=== PATIENT | male | born 1940 | race Caucasian/White ===

== ENCOUNTER 2016-09-28 10:27 | Emergency (ER) | payer BC ==
[~2016-09-28] VITALS: Ht 167.6 cm; Wt 96.0 kg
[2016-09-28 10:34] VITALS: TEMP 36.5; Ht 167.6 cm; Wt 96.0 kg
[2016-09-28] MEDS ORDERED: DILT-115 PO (10:57)
[2016-09-28] MEDS ORDERED: PANT40TA PO (10:57)
[2016-09-28] MEDS ORDERED: GLIM4TAB2 PO (10:57)
[2016-09-28] MEDS ORDERED: LOSA1TAB38 PO (10:57)
[2016-09-28] MEDS ORDERED: DOXA4TAB2 PO (10:57)
[2016-09-28] MEDS ORDERED: METF-384 PO (10:57)
[2016-09-28] MEDS ORDERED: METO100T14 PO (10:57)
[2016-09-28] MEDS ORDERED: SIMV10TA2 PO (10:57)
[2016-09-28] MEDS ORDERED: FINA5TAB PO (10:57)
[2016-09-28] MEDS ORDERED: HYDR-4717 PO (10:57)
--- NOTE | 2016-09-28 11:13 | EMERGENCY ROOM VISIT NOTE ---
History Report prepared by Marika: Sanna Renae Under the Supervision of: Dr. Stephane Corrales M.D. First contact with patient: 10:51 Chief Complaint: NOSE BLEED (MINOR) Stated Complaint: BLOODY NOSE - PCP SENT HERE History of Present Illness The patient is a 76 year old male who presents to the Emergency Room with complaints of a intermittent nose bleeds beginning 3 weeks ago. The patient states that his nose is bleeding mostly out of the left side today. He notes that he had his nose cauterized 2 times and tried a Rhino Rocket without relief of his symptoms. He reports that he is on Warfarin for TIA and baby aspirin but has not taken Warfarin since 5 days ago when his doctor told him to stop taking it and he stopped taking Aspirin 3 days ago. The patient complains of congestion. He denies any abdominal pain, urinary symptoms, bowel changes. He notes that he used Afrin last night without his relief of symptoms. He notes that he has been on Warfarin for 20 years and has never had an issue until recently. The patient states that he broke his nose 55 years ago. Source of History: patient Onset: 3 weeks ago Position: nose Quality: other (bleeding) Timing: intermittent Associated Symptoms: No abdominal pain, No urinary symptoms Note: Pt complains of congestion. Denies bowel changes. Review of Systems All systems have been listed, reviewed, and are negative other than those previously mentioned. Please see Additional Medical History Sheet. Past Medical & Surgical Medical Problems: (1) Diabetes (2) HTN (hypertension) Surgical Problems: (1) Hx of cholecystectomy Family History Diabetes mellitus Gallbladder disease Heart disease Hypertension Kidney disease Kidney stones Social History Smoking Status: Never Smoker Smokeless Tobacco Use: No Alcohol Use: occasionally Marital Status: Housing Status: lives with significant other Occupation Status: retired Current/Historical Medications Scheduled Diltiazem Hcl Ext Rel (Tiazac), 240 MG PO DAILY Doxazosin Mesylate (Cardura), 4 MG PO DAILY Finasteride (Proscar), 5 MG PO DAILY Glimepiride (Glimepiride), 4 MG PO BID Hydralazine Hcl (Apresoline), 25 MG PO DAILY Losartan Potassium (Cozaar), 100 MG PO DAILY Metformin Hcl (Glucophage), 1,000 MG PO AMPM Metoprolol Tartrate (Lopressor) (Lopressor), 50 MG PO AMPM Pantoprazole (Protonix), 40 MG PO DAILY Simvastatin (Zocor), 10 MG PO DAILY Allergies Coded Allergies: No Known Allergies (Unverified , 09/28/16) Physical Exam Vital Signs Date Time Temp Pulse Resp B/P Pulse Ox O2 Delivery O2 Flow Rate FiO2 09/28/16 15:23 83 18 182/81 95 Room Air 09/28/16 12:55 72 18 165/89 97 Room Air 09/28/16 10:34 36.5 70 16 162/84 95 Room Air Physical Exam GENERAL: Patient awake, alert, oriented x 3. Patient follows commands. Patient does not appear toxic. Patient is adequately hydrated and well- nourished. SKIN: No erythema, pallor, cyanosis or rash HEENT: Normal head, pupils equal, reactive to light and accommodation. Ears normal. Oral cavity and posterior pharynx appear normal, no blood in the posterior oropharynx. No bleeding from either naris, no bleeding site identified. Neck: Without adenopathy, no neck vein distention. LUNGS: Clear to auscultation. No wheezes, no rales, no rhonchi. HEART: No murmurs. No gallops. No rubs NEUROLOGIC: Cranial nerves II-XII within normal limits. No gross motor sensory function deficits. Medical Decision & Procedures Laboratory Results 09/28/16 11:15 09/28/16 11:15 Test 09/28/16 11:15 Red Blood Count 4.13 M/uL (4.7-6.1) Mean Corpuscular Volume 88.6 fL (80-100) Mean Corpuscular Hemoglobin 30.8 pg (25-34) Mean Corpuscular Hemoglobin Concent 34.7 g/dl (32-36) RDW Standard Deviation 43.0 fL (36.4-46.3) RDW Coefficient of Variation 13.3 % (11.5-14.5) Mean Platelet Volume 9.2 fL (7.4-10.4) Prothrombin Time 10.6 SECONDS (9.0-12.0) Prothromb Time International Ratio 1.0 (0.9-1.1) Activated Partial Thromboplast Time 27.6 SECONDS (21.0-31.0) Partial Thromboplastin Ratio 1.1 Anion Gap 8.0 mmol/L (3-11) Est Creatinine Clear Calc Drug Dose 71.7 ml/min Estimated GFR () 89.8 Estimated GFR (Non- 77.4 BUN/Creatinine Ratio 20.6 (10-20) Calcium Level 8.8 mg/dl (8.5-10.1) Laboratory results as stated above per my review. Medications Administered Medications (Trade) Dose Ordered Sig/Deniz Route Start Time Stop Time Status Last Admin Dose Admin Oxymetazoline HCl (Afrin 0.05% Nasal [place]) 2 sprays NOW ONCE NA 09/28/16 14:00 09/28/16 14:01 DC 09/28/16 13:57 2 SPRAYS Acetaminophen (Tylenol Tab) 1,000 mg STK-MED ONCE PO 09/28/16 15:30 09/28/16 15:33 DC 09/28/16 15:35 1,000 MG Procedure Cauterization with silver nitrate stick. Small bleed at the floor of the inferior turbinate. ED Course 1051: Past medical records reviewed. The patient was evaluated in room B3B. A complete history and physical examination was performed. 1220: I reevaluated the patient. His bleeding returned and I cauterized the patient's nose. 1226: Silver Nitrate/Potassium Nitrate 4pkt. 1347: I reevaluated the patient. His bleeding has returned. 1400: Oxymetazoline HCl 2 sprays NA. 1423: I cauterized the patient's nose again. 1458: The patient is bleeding again. 1506: I spoke to the [facility] doctor and the patient will get a rhino rocket. 1514: I placed a rhino rocket. 1536: Upon reevaluation, the patient appeared to have improvement of his symptoms. I discussed today's findings with the patient. He verbalized agreement of the treatment plan. The patient was discharged home. Medical Decision Differential diagnoses include epistaxis, coagulopathy, anemia. It was very difficult to determine the exact source of the bleed. At one point it appeared to be on the floor of his inferior turbinate. Silver nitrate cauterization and initially appeared to have resolved the bleed but it continued to bleed later. Afrin protocol was again utilized but did not stop the bleeding. HemaDerm was then used to occlude the bleeding site. Blood work had been performed earlier revealing a normal INR and no significant anemia. Despite the above measures patient continued to ooze. I was unable to find exact source of the bleed and therefore a Rhino Rocket was inserted into the left nares. The patient tolerated the procedure well. It was taped in place. The patient was given Tylenol for his headache. The patient will follow-up with Dr. Cali on Wednesday. The patient remains off of Coumadin until the bleeding has stopped. I did emphasize to the patient and his that we would like to start the Coumadin as soon as possible to prevent possible strokes. Consults Time Called: 1500 Consulting Physician: ABA Returned Call: 1506 I spoke to the [facility] doctor, Joselito Cali and the patient will need a rhino rocket. Impression Primary Impression: Epistaxis, recurrent Scribe Attestation The scribe's documentation has been prepared under my direction and personally reviewed by me in its entirety. I confirm that the note above accurately reflects all work, treatment, procedures, and medical decision making performed by me. Departure Information Dispostion Home / Self-Care Referrals Marcella Hu M.D. (PCP) Joselito Cali M.D. Devan Christensen MD Patient Instructions My [facility] Additional Instructions Continue all of your current medications as prescribed. Leave the Rhino Rocket in place until removed by Dr. Cali.
[2016-09-28 11:32] LABS: HEMATOCRIT 36.6 % (42-52); MEAN CELL VOLUME 88.6 fL (80-100); MEAN CORPUSCULAR HEMOGLOBIN 30.8 pg (25-34); MEAN CORPUSCULAR HGB CONC 34.7 g/dl (32-36); MEAN PLATELET VOLUME 9.2 fL (7.4-10.4); PLATELET COUNT 242 K/uL (130-400); RED BLOOD COUNT 4.13 M/uL (4.7-6.1)
[2016-09-28 11:45] LABS: PARTIAL THROMBOPLASTIN RATIO 1.1; PROTHROMBIN TIME (PATIENT) 10.6 SECONDS (9.0-12.0)
[2016-09-28 11:49] LABS: BUN/CREATININE RATIO 20.6 (10-20); CALCIUM 8.8 mg/dl (8.5-10.1); CREATININE 0.95 mg/dl (0.60-1.40); POTASSIUM 4.3 mmol/L (3.5-5.1)
[2016-09-28] MEDS ORDERED: SILVER NITR/POTASSIUM NITRATE 10 APPLICATOR PACK ONE (12:26)
[2016-09-28] MEDS ORDERED: OXYMETAZOLINE HCL 0.05% NA SPR 15 ML BTL ONE (14:00)
[2016-09-28] MEDS ORDERED: ACETAMINOPHEN 325 MG TAB PO STA (15:26)
[2016-09-28] MEDS ORDERED: ACETAMINOPHEN 500 MG TAB PO ONE (15:30)
[2016-09-28 16:10] VITALS: BP 153/84; PULSE 78; O2SAT 95
== END 2016-09-28 16:11 | disposition home or self-care (01) ==
LOC: C.EDB 10:28
DX: R04.0 Epistaxis (principal); E11.9 Type 2 diabetes mellitus without complications; I10 Essential (primary) hypertension; Z83.3 Family history of diabetes mellitus; Z83.79 Family history of other diseases of the digestive system; Z82.49 Family history of ischemic heart disease and other diseases of the circulatory system; Z84.1 Family history of disorders of kidney and ureter; Z79.01 Long term (current) use of anticoagulants; Z79.899 Other long term (current) drug therapy

== ENCOUNTER → 2016-11-25 | Outpatient (CLI) | payer BC ==
[~2016-11-25] MED LIST: DILT-115 PO; DOXA4TAB2 PO; FINA5TAB PO; GLIM4TAB2 PO; HYDR-4717 PO; LOSA1TAB38 PO; METF-384 PO; METO100T14 PO; PANT40TA PO; SIMV10TA2 PO
[2016-11-25 18:16] LABS: INR 2.9 (0.9-1.1); PROTHROMBIN TIME (PATIENT) 31.9 SECONDS (9.0-12.0)
[2016-11-25 18:20] LABS: BASO % 0.3 %; BASO ABS # 0.02 K/uL (0-0.2); COMPLETE YES; HEMATOCRIT 40.7 % (42-52); IG% 0.4 %; LYMPH % 11.5 %; LYMPH ABS # 0.88 K/uL (1.2-3.4); MEAN CELL VOLUME 88.9 fL (80-100); MEAN CORPUSCULAR HGB CONC 32.7 g/dl (32-36); MEAN PLATELET VOLUME 9.6 fL (7.4-10.4); NEUT % 79.8 %; PLATELET COUNT 306 K/uL (130-400); RED BLOOD COUNT 4.58 M/uL (4.7-6.1); WHITE BLOOD COUNT 7.62 K/uL (4.8-10.8)
[2016-11-25 18:23] LABS: BLOOD UREA NITROGEN 21 mg/dl (7-18); BUN/CREATININE RATIO 17.9 (10-20); CARBON DIOXIDE 27 mmol/L (21-32); CHLORIDE 107 mmol/L (98-107); GLUCOSE 152 mg/dl (70-99); POTASSIUM 4.1 mmol/L (3.5-5.1); SODIUM 141 mmol/L (136-145)
[2016-11-25 18:37] LABS: RATIO 94.7 mcg/mg (0-30.0)
[2016-11-25 18:42] LABS: ALKALINE PHOSPHATASE 70 U/L (45-117); ALT/SGPT 29 U/L (12-78); AST/SGOT 17 U/L (15-37); CHOLESTEROL 119 mg/dl (0-200); CHOLESTEROL/HDL RATIO 3.1; HDL CHOLESTEROL 39 mg/dl; LDL CHOLESTEROL CALCULATED 33 mg/dl; THYROID STIMULATING HORMONE 0.925 uIu/ml (0.300-4.500); TRIGLYCERIDES 237 mg/dl (0-150); VERY LOW DENSITY LIPOPROT CALC 47 mg/dl
[2016-11-26 06:37] LABS: ESTIMATED AVERAGE GLUCOSE 166 mg/dl; HA1C FLAG Normal (Normal)
== END | disposition home or self-care (01) ==
LOC: C.LABMFLN 11:22
PROVIDERS: ATTEND Family Medicine
DX: E11.9 Type 2 diabetes mellitus without complications (principal); E78.5 Hyperlipidemia, unspecified; I65.09 Occlusion and stenosis of unspecified vertebral artery

== ENCOUNTER → 2017-03-11 | Outpatient (CLI) | payer BC ==
[2017-03-11 13:26] LABS: BASO % 0.3 %; BASO ABS # 0.02 K/uL (0-0.2); COMPLETE YES; EOS % 4.5 %; HEMATOCRIT 36.8 % (42-52); IG% 0.3 %; LYMPH % 14.5 %; LYMPH ABS # 0.97 K/uL (1.2-3.4); MEAN CELL VOLUME 87.6 fL (80-100); MEAN CORPUSCULAR HGB CONC 34.2 g/dl (32-36); MEAN PLATELET VOLUME 9.2 fL (7.4-10.4); MONO % 9.1 %; NEUT % 71.3 %; PLATELET COUNT 236 K/uL (130-400)
[2017-03-11 14:09] LABS: ESTIMATED AVERAGE GLUCOSE 169 mg/dl; HA1C FLAG Normal (Normal)
[2017-03-11 15:16] LABS: BLOOD UREA NITROGEN 23 mg/dl (7-18); BUN/CREATININE RATIO 22.9 (10-20); CALCIUM 8.8 mg/dl (8.5-10.1); CARBON DIOXIDE 23 mmol/L (21-32); CHLORIDE 107 mmol/L (98-107); CREATININE 0.99 mg/dl (0.60-1.40); GLUCOSE 251 mg/dl (70-99); POTASSIUM 4.3 mmol/L (3.5-5.1); SODIUM 138 mmol/L (136-145)
== END | disposition home or self-care (01) ==
LOC: C.LABMFLN 10:49
PROVIDERS: ATTEND Family Medicine
DX: E11.9 Type 2 diabetes mellitus without complications (principal); N40.1 Benign prostatic hyperplasia with lower urinary tract symptoms; I65.09 Occlusion and stenosis of unspecified vertebral artery

== ENCOUNTER → 2017-06-23 | Outpatient (CLI) | payer BC ==
[2017-06-23 12:48] LABS: ESTIMATED AVERAGE GLUCOSE 189 mg/dl; HA1C FLAG Normal (Normal)
[2017-06-23 12:58] LABS: BASO % 0.3 %; BASO ABS # 0.02 K/uL (0-0.2); COMPLETE YES; EOS % 6.2 %; HEMATOCRIT 38.8 % (42-52); IG% 0.3 %; LYMPH % 12.5 %; LYMPH ABS # 0.87 K/uL (1.2-3.4); MEAN CORPUSCULAR HEMOGLOBIN 28.7 pg (25-34); MEAN PLATELET VOLUME 9.8 fL (7.4-10.4); NEUT % 72.7 %; PLATELET COUNT 248 K/uL (130-400); RED BLOOD COUNT 4.46 M/uL (4.7-6.1); WHITE BLOOD COUNT 6.98 K/uL (4.8-10.8)
[2017-06-23 13:00] LABS: INR 3.2 (0.9-1.1); PROTHROMBIN TIME (PATIENT) 36.5 SECONDS (9.0-12.0)
[2017-06-23 14:25] LABS: LYME DISEASE AB IGG NEG (NEG); LYME DISEASE AB IGM NEG (NEG)
== END | disposition home or self-care (01) ==
LOC: C.LABMFLN 10:08
PROVIDERS: ATTEND Family Medicine
DX: I65.09 Occlusion and stenosis of unspecified vertebral artery (principal); E11.9 Type 2 diabetes mellitus without complications; R20.2 Paresthesia of skin

== ENCOUNTER → 2017-09-13 | Outpatient (CLI) | payer BC ==
[2017-09-13 18:01] LABS: BASO % 0.3 %; BASO ABS # 0.02 K/uL (0-0.2); EOS % 2.8 %; EOS ABS # 0.18 K/uL (0-0.5); HEMATOCRIT 38.8 % (42-52); HEMOGLOBIN 12.6 g/dL (14.0-18.0); IG# 0.02 K/uL (0.00-0.02); LYMPH ABS # 0.98 K/uL (1.2-3.4); MEAN CELL VOLUME 87.6 fL (80-100); MEAN CORPUSCULAR HEMOGLOBIN 28.4 pg (25-34); MEAN CORPUSCULAR HGB CONC 32.5 g/dl (32-36); MEAN PLATELET VOLUME 9.6 fL (7.4-10.4); MONO ABS # 0.52 K/uL (0.11-0.59); NEUT % 73.6 %; NEUT ABS # 4.82 K/uL (1.4-6.5); PLATELET COUNT 270 K/uL (130-400); RED CELL DISTRIBUTION WIDTH CV 14.5 % (11.5-14.5); RED CELL DISTRIBUTION WIDTH SD 46.5 fL (36.4-46.3); WHITE BLOOD COUNT 6.54 K/uL (4.8-10.8)
[2017-09-13 18:23] LABS: ALBUMIN 3.6 gm/dl (3.4-5.0); AST/SGOT 18 U/L (15-37); BLOOD UREA NITROGEN 21 mg/dl (7-18); CALCIUM 8.6 mg/dl (8.5-10.1); CARBON DIOXIDE 24 mmol/L (21-32); CREATININE 1.12 mg/dl (0.60-1.40); GLUCOSE 194 mg/dl (70-99); LIPASE 180 U/L (73-393); POTASSIUM 4.2 mmol/L (3.5-5.1); SODIUM 138 mmol/L (136-145)
[2017-09-13 18:25] LABS: ALKALINE PHOSPHATASE 78 U/L (45-117); ALT/SGPT 25 U/L (12-78); TOTAL PROTEIN 7.6 gm/dl (6.4-8.2)
[2017-09-14 06:15] LABS: HEMOGLOBIN A1C 6.9 % (4.5-5.6)
== END | disposition home or self-care (01) ==
LOC: C.LABMFLN 11:44
PROVIDERS: ATTEND Family Medicine
DX: R10.9 Unspecified abdominal pain (principal); E11.9 Type 2 diabetes mellitus without complications

== ENCOUNTER 2022-12-25 15:46 | Inpatient (IN) ==
[2022-12-25 17:11] LABS: Basophils # (auto) 0.04 K/uL (0-0.2); Basophils % (auto) 0.7 %; Eosinophils # (auto) 0.08 K/uL (0-0.50); Eosinophils % (auto) 1.4 %; Hematocrit (blood only) 34.9 % (42.0-52.0); Hemoglobin 10.9 g/dl (14.0-18.0); Immature Granulocytes # (auto) 0.02 K/uL (0.01-0.20); Immature Granulocytes % (auto) 0.4 %; Lymphocytes # (auto) 0.62 K/uL (1.2-3.4); Mean Corpuscular Hgb Conc 31.2 g/dL (32.0-36.0); Mean Platelet Volume 9.7 fL (9.4-12.4); Monocytes # (auto) 0.57 K/uL (0.11-0.59); Monocytes % (auto) 10.1 %; Neutrophils # (auto) 4.32 K/uL (1.40-6.50); Neutrophils % (auto) 76.4 %; Platelet Count 258 K/uL (130-400); RDW Coefficient of Variation 19.2 % (11.5-14.5); RDW Standard Deviation 56.3 fL (36.4-46.3); Red Blood Count 4.36 M/uL (4.70-6.10); White Blood Count 5.65 K/ul (4.8-10.8)
[2022-12-25 17:15] LABS: BUN Creatinine Ratio 23.8 (10-20); Calcium 9.3 mg/dl (8.6-10.3); Creatinine Clr Calc Pharmacy 39.5 ml/min; Est GFR (African American) 58.9 ml/min; Est GFR (Non-African American) 50.8 ml/min; Potassium 4.2 mmol/L (3.5-5.1)
[2022-12-25 17:21] LABS: Troponin I High Sensitivity 13.2 pg/ml (0-20)
[2022-12-25 17:28] LABS: INR 1.2 (0.9-1.1); Partial Thromboplastin Time 28.3 Seconds (21.0-31.0); Prothrombin Time 12.5 Seconds (9.0-12.0)
--- NOTE | 2022-12-25 18:41 | XRay Report ---
TWO VIEW CHEST CLINICAL HISTORY: Atypical chest pain. FINDINGS: AP and lateral chest radiographs are correlated with abdominal CT dated 10/01/2014. The AP vi ew is degraded by apical lordotic positioning. The heart is enlarged note atherosclerotic calcificati on of the thoracic area. There is pulmonary vascular congestion and mild interstitial edema. There ar e small pleural effusions with dependent consolidation. There is no pneumothorax. The skeletal struct ures are osteopenic. The bony thorax appears intact. Degenerative change is noted in the shoulders an d spine. Cholecystectomy clips are present in the upper abdomen. IMPRESSION: 1. Cardiomegaly with evidence of congestive failure and pulmonary edema. 2. Small pleural effusions with dependent consolidation. ACT 112: Negative or not required by law. Electronically signed by: Sampson Mario M.D. 12/25/2022 6:39 PM
[2022-12-25] MEDS ORDERED: FUROSEMIDE 40 MG/4 ML VIAL IV ONE (18:48)
--- NOTE | 2022-12-25 22:20 | Emergency Department Note ---
History of Present Illness General Chief Complaint: Shortness of Breath/Dyspnea Stated Complaint: SOB, HISTORY OF HEART FAILURE Time Seen by Provider: 12/25/22 16:05 History of Present Illness Provider Complaint: shortness of breath Onset (ago): week(s) (2) Severity: moderate Consistency/Duration: + progressively worsening Relieved By: + upright position Exacerbated By: + lying flat and + exertion Known history of: congestive heart failure Associated symptoms: + orthopnea; no chest pain, no cough, no wheezing, no polyuria, no polydipsia, no paresthesias, no palpitations, no carpopedal spasm, no diaphoresis, no nausea/vomiting or no syncope Related Data Home oxygen amount: none Home Medications Medication Instructions Recorded Confirmed Type cyanocobalamin (vitamin B-12) 500 500 mcg PO DAILY #90 tabs 04/14/19 12/25/22 Rx mcg tablet aspirin 81 mg tablet 81 mg PO DAILY 04/22/20 12/25/22 History glimepiride 4 mg tablet 2 mg PO BID #90 tabs 06/30/22 12/25/22 Rx polysaccharide iron complex 150 mg 150 mg PO DAILY #100 caps 07/14/22 12/25/22 Rx iron capsule (Ferrex) metoprolol succinate 100 mg 100 mg PO DAILY #90 tabs 08/21/22 12/25/22 Rx tablet,extended release 24 hr finasteride 5 mg tablet 5 mg PO QPM #90 tabs 09/23/22 12/25/22 Rx metformin 1,000 mg tablet 1,000 mg PO BID #180 tabs 09/23/22 12/25/22 Rx pantoprazole 40 mg tablet,delayed 40 mg PO QAM #90 tabs 09/23/22 12/25/22 Rx release simvastatin 10 mg tablet 10 mg PO QPM #90 tabs 09/23/22 12/25/22 Rx doxazosin 4 mg tablet 4 mg PO DAILY 10/15/22 12/25/22 History furosemide 40 mg tablet 40 mg PO QAM #30 tabs 10/15/22 12/25/22 Rx losartan 100 mg tablet 100 mg PO DAILY #90 tabs 10/15/22 12/25/22 Rx hydrocodone 5 mg-acetaminophen 325 1 tab PO .COMPLEX PRN pain #60 tabs 11/17/22 12/25/22 Rx mg tablet Allergies Allergy/AdvReac Type Severity Reaction Status Date / Time No Known Drug Allergies Allergy Unknown Verified 12/25/22 20:17 Past Med/Surg History Medical History Adenomatous colon polyp Anemia Anticoagulant long-term use Anxiety and depression Benign prostatic hyperplasia with urinary obstruction Cardiomyopathy Carotid artery stenosis, asymptomatic Cataracts, bilateral Cerebral vascular insufficiency Chronic cerebral ischemia Chronic low back pain Congestive heart failure Diabetes Diabetic peripheral neuropathy Esophageal stricture History of TIA (transient ischemic attack) HTN (hypertension) Hyperlipidemia Iron deficiency anemia Nephrolithiasis Neurogenic claudication due to lumbar spinal stenosis TOM (obstructive sleep apnea) CPAP Parkinson's disease Paroxysmal SVT (supraventricular tachycardia) Pneumonia Renal cyst SNHL (sensorineural hearing loss) Spinal stenosis of lumbar region Subdural hematoma Vertebral artery stenosis Vertigo, central Surgical History H/O colonoscopy May 2020 H/O cystoscopy H/O knee surgery left History of esophagogastroduodenoscopy (EGD) 06/03/2018 negative History of prostate biopsy Hx of cholecystectomy Family History Mother Coronary heart disease Myocardial infarction Grandmother Stroke Father Diabetes Other Hypertension Denies family history of Ovarian cancer Prostate cancer Breast cancer Colorectal cancer Social History Smoking Status: Former smoker Tobacco Type: Cigarettes Age Started Using Tobacco: 10; Age Quit Using Tobacco: 61; Second Hand Exposure: Yes; Do You Dip or Chew Tobacco: No; Hx Alcohol Use: Yes Alcohol type: beer Alcohol Intake Frequency: 4 or More x per/Week Alcohol Intake Frequency Comment: 1 beer daily Hx Substance Use: No Preferred Language: Argentine Communication Ability: Effective Communication Ability Comment: PT TORRES MARTINEZ Visual Impairment: Partially Limited Hearing Ability: Use of Hearing Aid Titrator Required: No Beliefs That Will Affect Care: None marital status: Current Living Situation: Spouse current occupational status: retired How many Children do You have: 4 Feels Safe at Home: Yes Childhood Exposure to Second-Hand Smoke: Yes Diet: regular caffeine: Yes (coffee) during the past year weight has: remained stable Dental Care, Regularly: Yes Physical Activity Frequency: Does not Exercise Seatbelt Use: always Sunscreen Use: No Do you think of yourself as: straight/heterosexual Gender Identity: Male Assistive Devices: Cane, CPAP, Glasses, Hearing Aid - Bilateral and Walker Physical Exam Vital Signs: Vital Signs - 24 hr 12/25/22 15:50 12/25/22 16:06 12/25/22 16:19 Temperature 36.5 C Temperature Source Temporal Artery Sc an Pulse Rate 76 62 Pulse Rate from Sp O2 Sensor Respiratory Rate 24 Respiratory Effort / Characteristics Short of Breath SO B on Exertion Respiratory Patter n Tachypnea Blood Pressure 155/77 H Blood Pressure Dione n 103 Pulse Oximetry 99 Oxygen Delivery Me thod Room Air Nasal Cannula Sepsis Recent Feve r Within 48 Hours No Sepsis New/Unexpla ined Change in Men abhishek Status N/A Sepsis Action Take n by Nursing No Action Required 12/25/22 17:10 12/25/22 18:00 12/25/22 18:30 Temperature Temperature Source Pulse Rate 62 64 60 Pulse Rate from Sp O2 Sensor 63 63 Respiratory Rate 28 H 24 24 Respiratory Effort / Characteristics Respiratory Patter n Blood Pressure 172/92 H 179/93 H 159/120 H Blood Pressure Dione n 118 121 133 Pulse Oximetry 97 100 97 Oxygen Delivery Me thod Room Air Sepsis Recent Feve r Within 48 Hours Sepsis New/Unexpla ined Change in Men abhishek Status Sepsis Action Take n by Nursing 12/25/22 19:00 12/25/22 19:01 12/25/22 19:53 Temperature Temperature Source Pulse Rate 60 61 Pulse Rate from Sp O2 Sensor Respiratory Rate 24 22 Respiratory Effort / Characteristics Respiratory Patter n Blood Pressure 174/101 H Blood Pressure Dione n 125 Pulse Oximetry 100 98 98 Oxygen Delivery Me thod Room Air Room Air Room Air Sepsis Recent Feve r Within 48 Hours Sepsis New/Unexpla ined Change in Men abhishek Status Sepsis Action Take n by Nursing 12/25/22 19:53 12/25/22 20:25 12/25/22 19:37 Temperature Temperature Source Pulse Rate 64 68 Pulse Rate from Sp O2 Sensor Respiratory Rate 23 Respiratory Effort / Characteristics Respiratory Patter n Blood Pressure 175/102 H Blood Pressure Dione n 126 Pulse Oximetry 98 100 Oxygen Delivery Me thod Room Air Room Air Sepsis Recent Feve r Within 48 Hours Sepsis New/Unexpla ined Change in Men abhishek Status Sepsis Action Take n by Nursing 12/25/22 20:00 12/25/22 20:49 12/25/22 21:00 Temperature Temperature Source Pulse Rate 63 64 62 Pulse Rate from Sp O2 Sensor Respiratory Rate 22 27 H 22 Respiratory Effort / Characteristics Respiratory Patter n Blood Pressure 185/94 H 179/98 H 175/102 H Blood Pressure Dione n 124 125 126 Pulse Oximetry 100 100 100 Oxygen Delivery Me thod Room Air Room Air Room Air Sepsis Recent Feve r Within 48 Hours Sepsis New/Unexpla ined Change in Men abhishek Status Sepsis Action Take n by Nursing 12/25/22 21:30 12/25/22 22:00 Temperature Temperature Source Pulse Rate 61 61 Pulse Rate from Sp O2 Sensor Respiratory Rate 21 20 Respiratory Effort / Characteristics Respiratory Patter n Blood Pressure 188/116 H 178/106 H Blood Pressure Dione n 140 130 Pulse Oximetry 98 100 Oxygen Delivery Me thod Room Air Room Air Sepsis Recent Feve r Within 48 Hours Sepsis New/Unexpla ined Change in Men abhishek Status Sepsis Action Take n by Nursing Physical Exam: Physical Exam HENT: Exam performed. - Head: Normocephalic and atraumatic. - Right Ear: External ear normal. No mastoid erythema - Left Ear: External ear normal. No mastoid erythema EYES: Conjunctivae and EOM are normal. Pupils are equal, round, and reactive to light. Right eye exhibits no discharge. Left eye exhibits no discharge. No scleral icterus. NECK: Normal range of motion. Neck supple. No JVD present. No tracheal deviation and normal range of motion present. CV: Normal rate, regular rhythm, normal heart sounds and intact distal pulses. 2+ pitting edema of the bilateral lower extremities. Palpable radial pulses bue. PULM/CHEST: Rales bilaterally. MUSC/SKEL: Normal range of motion. 2+ pitting edema of the bilateral lower extremities. LYMPH: No cervical adenopathy. NEURO: Motor and sensation grossly intact. SKIN: Skin is warm and dry. He is not diaphoretic. PSYCH: He has a normal mood and affect. Behavior is normal. Judgment and thought content normal. Course Course 1605: The patient was evaluated in room [facility]. A complete history and physical exam was performed Administered Medications Discontinued Medications Furosemide (Furosemide 40 Mg/4 Ml Vial) 40 mg IV ONE ONE Stop: 12/25/22 18:49 Last Admin: 12/25/22 19:37 Dose: 40 mg Documented By: FREDA Medical Decision Making Laboratory Data Attestation: I reviewed the patient's lab results. 12/25/22 16:30 12/25/22 16:30 Lab Results 12/25/22 12/25/22 12/25/22 Range/Units 16:30 16:30 16:30 WBC 5.65 (4.8-10.8) K/ul RBC 4.36 L (4.70-6.10) M/uL Hgb 10.9 L (14.0-18.0) g/dl Hct 34.9 L (42.0-52.0) % MCV 80.0 (80.0-100.0) fL MCH 25.0 (25.0-34.0) pg MCHC 31.2 L (32.0-36.0) g/dL RDW Std Deviation 56.3 H (36.4-46.3) fL RDW Coeff of Matthew 19.2 H (11.5-14.5) % Plt Count 258 (130-400) K/uL MPV 9.7 (9.4-12.4) fL Immature Gran % (Auto) 0.4 % Neut % (Auto) 76.4 % Lymph % (Auto) 11.0 % [place] % (Auto) 10.1 % Eos % (Auto) 1.4 % Baso % (Auto) 0.7 % Neut # (Auto) 4.32 (1.40-6.50) K/uL Lymph # (Auto) 0.62 L (1.2-3.4) K/uL [place] # (Auto) 0.57 (0.11-0.59) K/uL Eos # (Auto) 0.08 (0-0.50) K/uL Baso # (Auto) 0.04 (0-0.2) K/uL Immature Gran # (Auto) 0.02 (0.01-0.20) K/uL PT (9.0-12.0) Seconds INR (0.9-1.1) APTT (21.0-31.0) Seconds PTT Ratio Sodium 142 (136-145) mmol/L Potassium 4.2 (3.5-5.1) mmol/L Chloride 104 (98-107) mmol/L Carbon Dioxide 25 (21-32) mmol/L Anion Gap 13 H (3-11) BUN 31 H (6-23) mg/dl Creatinine 1.30 (0.6-1.4) mg/dl Est Cr Clr Drug Dosing 39.5 ml/min Est GFR ( Amer) 58.9 ml/min Est GFR (Non-Af Amer) 50.8 ml/min BUN/Creatinine Ratio 23.8 H (10-20) Glucose 118 H (70-99(Fasting)) mg/dl Calcium 9.3 (8.6-10.3) mg/dl Troponin I High Sens 13.2 (0-20) pg/ml B-Natriuretic Peptide 1358 H (0-100) pg/ml Lipase 8 L (11-82) U/L SARS-CoV-2, RNA, NAAT (NEGATIVE) 12/25/22 12/25/22 Range/Units 16:30 17:10 WBC (4.8-10.8) K/ul RBC (4.70-6.10) M/uL Hgb (14.0-18.0) g/dl Hct (42.0-52.0) % MCV (80.0-100.0) fL MCH (25.0-34.0) pg MCHC (32.0-36.0) g/dL RDW Std Deviation (36.4-46.3) fL RDW Coeff of Matthew (11.5-14.5) % Plt Count (130-400) K/uL MPV (9.4-12.4) fL Immature Gran % (Auto) % Neut % (Auto) % Lymph % (Auto) % [place] % (Auto) % Eos % (Auto) % Baso % (Auto) % Neut # (Auto) (1.40-6.50) K/uL Lymph # (Auto) (1.2-3.4) K/uL [place] # (Auto) (0.11-0.59) K/uL Eos # (Auto) (0-0.50) K/uL Baso # (Auto) (0-0.2) K/uL Immature Gran # (Auto) (0.01-0.20) K/uL PT 12.5 H (9.0-12.0) Seconds INR 1.2 H (0.9-1.1) APTT 28.3 (21.0-31.0) Seconds PTT Ratio 1.0 Sodium (136-145) mmol/L Potassium (3.5-5.1) mmol/L Chloride (98-107) mmol/L Carbon Dioxide (21-32) mmol/L Anion Gap (3-11) BUN (6-23) mg/dl Creatinine (0.6-1.4) mg/dl Est Cr Clr Drug Dosing ml/min Est GFR ( Amer) ml/min Est GFR (Non-Af Amer) ml/min BUN/Creatinine Ratio (10-20) Glucose (70-99(Fasting)) mg/dl Calcium (8.6-10.3) mg/dl Troponin I High Sens (0-20) pg/ml B-Natriuretic Peptide (0-100) pg/ml Lipase (11-82) U/L SARS-CoV-2, RNA, NAAT NEGATIVE (NEGATIVE) Imaging Data Attestation: I personally reviewed and interpreted this imaging study as follows: My Impression: Chest x-ray: Cardiomegaly with cephalization Radiologist's Impression: Chest X-Ray 12/25/22 16:06 TWO VIEW CHEST CLINICAL HISTORY: Atypical chest pain. FINDINGS: AP and lateral chest radiographs are correlated with abdominal CT dated 10/01/2014. The AP view is degraded by apical lordotic positioning. The heart is enlarged note atherosclerotic calcification of the thoracic area. There is pulmonary vascular congestion and mild interstitial edema. There are small pleural effusions with dependent consolidation. There is no pneumothorax. The skeletal structures are osteopenic. The bony thorax appears intact. Degenerative change is noted in the shoulders and spine. Cholecystectomy clips are present in the upper abdomen. IMPRESSION: 1. Cardiomegaly with evidence of congestive failure and pulmonary edema. 2. Small pleural effusions with dependent consolidation. ACT 112: Negative or not required by law. Electronically signed by: Sampson Mario M.D. 12/25/2022 6:39 PM ECG Data Attestation: I personally reviewed and interpreted this ECG as follows: Interpretation: EKG #1 at 1617: Atrial flutter with rate of 65. QRS 166 QTc 480 there is a great amount of artifact. EKG #2 at 1650: Sinus arrhythmia with rate of 64. PA 214 QRS 164 QTc 480. First-degree AV block present. Left bundle branch block present. sgarbosa negative MDM Narrative Cardiac monitoring: An order was placed for continuous cardiac monitoring. The monitor shows a rate of 60 with sinus arrhythmia interpreted by me Vital signs stable. Labs show an elevated proBNP troponin within normal limits chest x-ray shows cardiomegaly with cephalization. Patient be given IV Lasix. Patient be admitted to the [facility] hospitalist team Dr. Chung is aware of patient. Impression & Plan Congestive heart failure Discharge Plan Visit Data Chief Complaint: Shortness of Breath/Dyspnea Stated Complaint: SOB, HISTORY OF HEART FAILURE ED Provider: Jasson Townsend Discharge Problem: Congestive heart failure Patient Disposition: Admitted As Inpatient Forms Stand Alone Forms: My [facility] Prescriptions Prescriptions: No Action glimepiride 4 mg tablet 2 mg PO BID Qty: 90 3RF polysaccharide iron complex [Ferrex 150] 150 mg iron capsule 150 mg PO DAILY Qty: 100 3RF metoprolol succinate 100 mg tablet extended release 24 hr 100 mg PO DAILY Qty: 90 3RF metformin 1,000 mg tablet 1,000 mg PO BID Qty: 180 3RF finasteride 5 mg tablet 5 mg PO QPM Qty: 90 1RF pantoprazole 40 mg tablet,delayed release (DR/EC) 40 mg PO QAM Qty: 90 3RF simvastatin 10 mg tablet 10 mg PO QPM Qty: 90 3RF hydrocodone-acetaminophen 5-325 mg tablet 1 tab PO .COMPLEX PRN (Reason: pain) Qty: 60 0RF Rx Instructions: take 1/2 or 1 pill po bid prn pain cyanocobalamin (vitamin B-12) 500 mcg tablet 500 mcg PO DAILY Qty: 90 3RF aspirin 81 mg tablet 81 mg PO DAILY Hold Instructions: due to subdural hematoma doxazosin 4 mg tablet 4 mg PO DAILY furosemide 40 mg tablet 40 mg PO QAM Qty: 30 2RF losartan 100 mg tablet 100 mg PO DAILY Qty: 90 3RF Referrals Referrals: Mag Blevins DO [Primary Care Provider] -
[2022-12-26] MEDS ORDERED: ACETAMINOPHEN 325 MG TAB PO PRN (00:45)
[2022-12-26] MEDS ORDERED: ALUMINUM/MAGNESIUM SUSP 30 ML UDC PO PRN (00:45)
[2022-12-26] MEDS ORDERED: HYDROCODONE/ACETAMOPHEN 5/325MG TAB PO PRN (00:45)
--- NOTE | 2022-12-26 06:10 | History & Physical Report ---
Date of Service December 25, 2022 Assessment & Plan (1) Acute HFrEF (heart failure with reduced ejection fraction): Plan: Patient presents to ED with complaints of worsening shortness of breath. Patient has a known history of CHF diagnosed few months ago and based on card iology evaluation in November 15 patient noted to have congestive heart failure with reduced EF and patient was placed on oral Lasix. Patient was attempted to be started on Entresto but was unable to tolerate secondary to orthostatic hypotension and patient was continued on losartan and conjunction with metoprolol at that time and it was noted that patient's medications for CHF have been limited by orthostatic symptoms. During present patient patient has evidence of congestive heart failure with symptoms of orthopnea and exertional dyspnea. proBNP elevated at 1358 and high sensitive troponin not elevated Chest x-ray shows evidence of pulmonary vascular congestion and interstitial edema consistent with CHF Start patient on IV diuretics to promote diuresis Monitor I's and O's closely with CHF protocol Transthoracic echo to assess EF Cardiology input as during recent office notes it was noted that patient might need cardiac cath and possible biventricular AICD placement to optimize cardiac function (2) HTN (hypertension): Plan: Continue home dose of losartan 100 mg daily in addition to metoprolol with hold parameters. Monitor blood pressure trend and titrate meds as tolerated (3) Vertebral artery stenosis: Plan: Patient has history of vertebral artery stenosis and was on warfarin therapy that was discontinued after patient had an episode of subdural hematoma few months ago. Patient is presently asymptomatic (4) Diabetes: Plan: will hold oral hypoglycemics and patient will be placed on sliding scale coverage with short acting insulin based on fingerstick monitoring. Check hemoglobin A1c level (5) BPH NOS w ur obs/LUTS: Plan: Continue home dose of Cardura 4 mg daily and finasteride 5 mg daily (6) Hyperlipidemia: Plan: Continue statin therapy with simvastatin 10 mg daily (7) Parkinson's disease: Plan: Patient has orthostatic hypotension related to Parkinson disease and limits optimizing his hypertension medications including Entresto. Admission and Anticipated Discharge Date Admission Date: December 25, 2022 History of Present Illness Chief Complaint: Patient presents to ED with complaints of shortness of breath Primary Care Provider: Mag Blevins DO This is 82-year-old male with past medical history significant for history of type II diabetes mellitus, hyperlipidemia, hypertension, CHF who presents to the emergency department with complaints of worsening shortness of breath. Patient reports he started experiencing shortness of breath about 2 weeks ago and has been progressively worsening over the past few days. Patient reports that he feels that his shortness of breath worsens when he lays flat and improves when he assumes an upright posture. Patient also reports increasing shortness of breath when he exerts himself and reports some dry cough symptoms without significant expectoration. Patient has been admitted about 3 months ago has been diagnosed with congestive heart failure when he was admitted with a pneum onia at that time. Patient denies chest pain or nausea vomiting. Patient admits to orthopnea and is on any oral diuretics at home. Upon evaluation in the ED patient found to have elevated proBNP level of 1358 and is high sensitive troponin was 13.2 and radiologic exam shows pulmonary vascular congestion consistent with CHF and hence patient is being admitted for further management. Allergies Allergy/AdvReac Type Severity Reaction Status Date / Time No Known Drug Allergies Allergy Unknown Verified 12/25/22 20:17 Home Medications Medication Instructions Recorded Confirmed Type cyanocobalamin (vitamin B-12) 500 500 mcg PO DAILY #90 tabs 04/14/19 12/25/22 Rx mcg tablet aspirin 81 mg tablet 81 mg PO DAILY 04/22/20 12/25/22 History glimepiride 4 mg tablet 2 mg PO BID #90 tabs 06/30/22 12/25/22 Rx polysaccharide iron complex 150 mg 150 mg PO DAILY #100 caps 07/14/22 12/25/22 Rx iron capsule (Ferrex) metoprolol succinate 100 mg 100 mg PO DAILY #90 tabs 08/21/22 12/25/22 Rx tablet,extended release 24 hr finasteride 5 mg tablet 5 mg PO QPM #90 tabs 09/23/22 12/25/22 Rx metformin 1,000 mg tablet 1,000 mg PO BID #180 tabs 09/23/22 12/25/22 Rx pantoprazole 40 mg tablet,delayed 40 mg PO QAM #90 tabs 09/23/22 12/25/22 Rx release simvastatin 10 mg tablet 10 mg PO QPM #90 tabs 09/23/22 12/25/22 Rx doxazosin 4 mg tablet 4 mg PO DAILY 10/15/22 12/25/22 History furosemide 40 mg tablet 40 mg PO QAM #30 tabs 10/15/22 12/25/22 Rx losartan 100 mg tablet 100 mg PO DAILY #90 tabs 10/15/22 12/25/22 Rx hydrocodone 5 mg-acetaminophen 325 1 tab PO .COMPLEX PRN pain #60 tabs 11/17/22 12/25/22 Rx mg tablet Past Med/Surg History Medical History Adenomatous colon polyp Anemia Anticoagulant long-term use Anxiety and depression Benign prostatic hyperplasia with urinary obstruction Cardiomyopathy Carotid artery stenosis, asymptomatic Cataracts, bilateral Cerebral vascular insufficiency Chronic cerebral ischemia Chronic low back pain Congestive heart failure Diabetes Diabetic peripheral neuropathy Esophageal stricture History of TIA (transient ischemic attack) HTN (hypertension) Hyperlipidemia Iron deficiency anemia Nephrolithiasis Neurogenic claudication due to lumbar spinal stenosis TOM (obstructive sleep apnea) CPAP Parkinson's disease Paroxysmal SVT (supraventricular tachycardia) Pneumonia Renal cyst SNHL (sensorineural hearing loss) Spinal stenosis of lumbar region Subdural hematoma Vertebral artery stenosis Vertigo, central Surgical History H/O colonoscopy May 2020 H/O cystoscopy H/O knee surgery left History of esophagogastroduodenoscopy (EGD) 06/03/2018 negative History of prostate biopsy Hx of cholecystectomy Family History Mother Coronary heart disease Myocardial infarction Grandmother Stroke Father Diabetes Other Hypertension Denies family history of Ovarian cancer Prostate cancer Breast cancer Colorectal cancer Social History Smoking Status: Former smoker Tobacco Type: Cigarettes Age Started Using Tobacco: 10; Age Quit Using Tobacco: 61; Second Hand Exposure: Yes; Do You Dip or Chew Tobacco: No; Hx Alcohol Use: Yes Alcohol type: beer, wine and hard liquor Alcohol Intake Frequency: 4 or More x per/Week Alcohol Intake Frequency Comment: 1 beer daily Hx Substance Use: No Preferred Language: Jamaican Communication Ability: Effective Communication Ability Comment: PT [place] Visual Impairment: Partially Limited Hearing Ability: Use of Hearing Aid Medication Tech Required: No Beliefs That Will Affect Care: None marital status: Current Living Situation: Spouse Current Living Situation Comment: Lives in a home with current occupational status: retired How many Children do You have: 4 Other Information That Helps Us Care for You: No Feels Safe at Home: Yes Safety Concerns: Feels Safe At This Time Childhood Exposure to Second-Hand Smoke: Yes Diet: regular caffeine: Yes (coffee) during the past year weight has: remained stable Dental Care, Regularly: Yes Physical Activity Frequency: Does not Exercise Seatbelt Use: always Sunscreen Use: No Do you think of yourself as: straight/heterosexual Gender Identity: Male Assistive Devices: Glasses, Hearing Aid - Bilateral and Walker Assistive Devices Comment: Hearing aids not present; states does use d/t doesn't fit Review of Systems Review of Systems: Constitutional-no fever or chills ENT-no blurred vision, no double vision, no epistaxis, no sore throat Respiratory- no shortness of breath noted with exertion. Cardiac-no palpitations, no chest pain, no syncope GI-no nausea, vomiting, diarrhea, -no urinary retention, no urinary incontinence, no dysuria, Musculoskeletal-no joint pain, no muscle tenderness Skin-no bruising, no rashes, no pruritus Neuro-no isolated weakness, no paresthesia, Physical Exam Physical Exam: Head and ENT no thyroid enlargement trachea midline Cardiovascular S1-S2 are normal no S3 Lungs bilateral air entry decreased at bases with scattered basilar rales no wheezing Abdomen soft nondistended positive bowel sounds no rebound tenderness Extremity shows trace edema b/l LE Neurologically no focal deficits Skin shows no rash no cyanosis Results & Data Results & Data Vital Signs (Past 12 Hours) Vital Signs Temp Pulse Pulse Pulse Resp BP BP 12/26/22 00:17 64 12/26/22 02:40 36.4 C L 74 18 174/92 H 12/26/22 00:45 12/26/22 00:15 36.4 C L 64 22 12/25/22 23:03 66 22 167/83 H 12/25/22 23:01 74 13 12/25/22 22:30 56 L 24 173/89 H 12/25/22 22:00 61 20 178/106 H 12/25/22 21:30 61 21 188/116 H 12/25/22 21:00 62 22 175/102 H 12/25/22 20:49 64 27 H 179/98 H 12/25/22 20:00 63 22 185/94 H 12/25/22 19:37 68 23 175/102 H 12/25/22 20:25 64 12/25/22 19:53 12/25/22 19:53 12/25/22 19:01 61 22 174/101 H 12/25/22 19:00 60 24 12/25/22 18:30 60 24 159/120 H BP Pulse Ox O2 Del Method 12/26/22 00:17 12/26/22 02:40 90 Room Air 12/26/22 00:45 Room Air 12/26/22 00:15 173/82 H 100 Room Air 12/25/22 23:03 95 Room Air 12/25/22 23:01 90 Room Air 12/25/22 22:30 97 Room Air 12/25/22 22:00 100 Room Air 12/25/22 21:30 98 Room Air 12/25/22 21:00 100 Room Air 12/25/22 20:49 100 Room Air 12/25/22 20:00 100 Room Air 12/25/22 19:37 100 Room Air 12/25/22 20:25 12/25/22 19:53 98 Room Air 12/25/22 19:53 98 Room Air 12/25/22 19:01 98 Room Air 12/25/22 19:00 100 Room Air 12/25/22 18:30 97 Room Air Laboratory Results Short CBC 12/25/22 Range/Units 16:30 WBC 5.65 (4.8-10.8) K/ul Hgb 10.9 L (14.0-18.0) g/dl Hct 34.9 L (42.0-52.0) % Plt Count 258 (130-400) K/uL BMP 12/25/22 16:30 Sodium 142 Potassium 4.2 Chloride 104 Carbon Dioxide 25 BUN 31 H Creatinine 1.30 Glucose 118 H Calcium 9.3 Diagnostic Findings Chest X-Ray 12/25/22 16:06 TWO VIEW CHEST CLINICAL HISTORY: Atypical chest pain. FINDINGS: AP and lateral chest radiographs are correlated with abdominal CT dated 10/01/2014. The AP view is degraded by apical lordotic positioning. The heart is enlarged note atherosclerotic calcification of the thoracic area. There is pulmonary vascular congestion and mild interstitial edema. There are small pleural effusions with dependent consolidation. There is no pneumothorax. The skeletal structures are osteopenic. The bony thorax appears intact. Degenerative change is noted in the shoulders and spine. Cholecystectomy clips are present in the upper abdomen. IMPRESSION: 1. Cardiomegaly with evidence of congestive failure and pulmonary edema. 2. Small pleural effusions with dependent consolidation. ACT 112: Negative or not required by law. Electronically signed by: Sampson Mario M.D. 12/25/2022 6:39 PM Code Status & VTE Plan VTE Prophylaxis Plan VTE Prophylaxis will be ordered: Yes PG Care Time/CCT Total # of Minutes Spent Total Time Spent with Patient: Total time spent is greater than 50% in coordination of care (as documented) at patient's floor/unit and/or counseling patient: Coding Level of Care Code 11303 INT INP/OBS CARE 255MIN Diagnoses Acute HFrEF (heart failure with reduced ejection fraction) I50.21 HTN (hypertension) I10 Vertebral artery stenosis I65.09 Diabetes E11.9 BPH NOS w ur obs/LUTS N40.1 Hyperlipidemia E78.5 Parkinson's disease G20
--- NOTE | 2022-12-26 06:43 | Electrocardiogram Report ---
Test Reason : Blood Pressure : / mmHG Vent. Rate : 064 BPM Atrial Rate : 064 BPM P-R Int : 214 ms QRS Dur : 164 ms QT Int : 466 ms P-R-T Axes : 079 -62 109 degrees QTc Int : 480 ms Sinus rhythm with sinus arrhythmia with 1st degree A-V block Left axis deviation Left bundle branch block Abnormal ECG When compared with ECG of 25-DEC-2022 16:17, (unconfirmed) Previous ECG has undetermined rhythm, needs review Confirmed by Cuco Castañeda ([id number]) on 12/26/2022 6:42:54 AM Referred By: REFERRED SELF Confirmed By:Mike Castañeda
--- NOTE | 2022-12-26 06:47 | Electrocardiogram Report ---
Test Reason : Blood Pressure : / mmHG Vent. Rate : 065 BPM Atrial Rate : 064 BPM P-R Int : 000 ms QRS Dur : 166 ms QT Int : 462 ms P-R-T Axes : 000 -44 096 degrees QTc Int : 480 ms Sinus rhythm Left axis deviation Non-specific intra-ventricular conduction block Abnormal ECG No previous ECGs available Confirmed by Cuco Castañeda ([id number]) on 12/26/2022 6:47:09 AM Referred By: REFERRED SELF Confirmed By:Mike Castañeda
[2022-12-26] MEDS ORDERED: PHARMACY GLYCEMIC MGMT CONSULT PRN (07:27)
[2022-12-26] MEDS ORDERED: DEXTROSE 50% 50 ML SYRINGE IV PRN (07:27)
[2022-12-26] MEDS ORDERED: GLUCOSE 10 TAB/TUBE PO PRN (07:27)
[2022-12-26] MEDS ORDERED: GLUCOSE 40% GEL 15 GM TUBE PO PRN (07:27)
[2022-12-26] MEDS ORDERED: CARBOHYDRATES FOR HYPOGLYCEMIA PO PRN (07:27)
[2022-12-26] MEDS ORDERED: GLUCAGON FOR INJ 1 MG VIAL SQ PRN (07:27)
[2022-12-26 07:43] LABS: Hematocrit (blood only) 36.6 % (42.0-52.0); Hemoglobin 11.6 g/dl (14.0-18.0); Mean Corpuscular Hemoglobin 24.9 pg (25.0-34.0); Mean Corpuscular Hgb Conc 31.7 g/dL (32.0-36.0); Mean Corpuscular Volume 78.5 fL (80.0-100.0); Mean Platelet Volume 9.6 fL (9.4-12.4); Platelet Count 286 K/uL (130-400); RDW Coefficient of Variation 18.9 % (11.5-14.5); RDW Standard Deviation 53.7 fL (36.4-46.3); Red Blood Count 4.66 M/uL (4.70-6.10); White Blood Count 5.91 K/ul (4.8-10.8)
[2022-12-26 07:52] LABS: Calcium 9.6 mg/dl (8.6-10.3); Creatinine Clr Calc Pharmacy 50.7 ml/min; Est GFR (African American) 70.5 ml/min; Est GFR (Non-African American) 60.8 ml/min; Potassium 3.6 mmol/L (3.5-5.1)
[2022-12-26 08:03] LABS: Troponin I High Sensitivity 19.5 pg/ml (0-20)
[2022-12-26] MEDS: ASPIRIN 81 MG ECTAB PO SCH (08:24)
[2022-12-26] MEDS: DOXAZosin MESYLATE 4 MG TAB PO SCH (08:24)
[2022-12-26] MEDS: CYANOCOBALAMIN (B-12) 500 MCG TABLET PO SCH (08:24)
[2022-12-26] MEDS: LOSARTAN POTASSIUM 50 MG TAB PO SCH (08:26)
[2022-12-26] MEDS: METOPROLOL SUCC 50MG EXT REL TAB PO SCH (08:27)
[2022-12-26] MEDS: HEPARIN SOD 5,000 UNIT/0.5 ML VIAL SQ SCH ×2 (08:27→21:17)
[2022-12-26] MEDS: IRON POLYSACCHARIDE COMPLEX 150 MG CAPSULE PO SCH (08:27)
[2022-12-26] MEDS: PANTOprazole 40 MG TAB PO SCH (08:30)
[2022-12-26] MEDS: INSULIN ASPART PER UNIT CHARGE SC SCH ×4 (08:46→21:18)
[2022-12-26] MEDS ORDERED: NON-FORMULARY MEDICATION (Aspirin 81 mg tablet) PO SCH (09:00)
[2022-12-26] MEDS ORDERED: FUROSEMIDE INJ 20 MG/2 ML VIAL IV SCH (09:00)
--- NOTE | 2022-12-26 11:09 | XCELERA ---
[id number]
--- NOTE | 2022-12-26 12:20 | Cardiology Consultation ---
Date of Consultation December 26, 2022 Assessment & Plan (1) Acute HFrEF (heart failure with reduced ejection fraction): (2) Cardiomyopathy: (3) Mitral regurgitation: (4) Coronary disease: (5) Left bundle branch block: Plan 1. Decompensated systolic heart failure: He has fairly severe LV dysfunction. his symptoms and objective findings are consistent with decompensated heart failure. He is undergoing a diuresis. I think his regimen can be simplified to Lasix 40 mg twice daily. Renal function appears to be stable and he is responding to the medication. Unclear what precipitated this decompensation. This appears to be a subacute presentation. No evidence of a recent ischemic event. He did not present with arrhythmia and did not describe symptoms consistent with a tachy arrhythmia. He did not report any dietary indiscretion or medication noncompliance. 2. Cardiomyopathy: Possibly ischemic. Patient has declined more definitive evaluation in the past. However he does have regional wall motion abnormalities and known atherosclerotic disease. He is relatively sedentary but did not report symptoms consistent with exertional angina or coronary insufficiency. Aggressive therapy has been hampered by relative hypotension and symptoms of orthostasis. He appears to have suffered an episode of syncope recently as well. The symptoms are likely related to his known cerebrovascular disease and parkinsonism. However, his blood pressure appears to be notably elevated during this admission. Think at some point will need to check orthostatics to see if re-initiation of some heart failure therapy would be appropriate. Currently his degree of LV dysfunction is in the range where a defibrillator may be of value. However, his desire to avoid aggressive interventions leads me to believe this would be inappropriate. I did not have this discussion with the patient today. This could certainly be readdressed on an outpatient basis. 3. Mitral regurgitation: Moderate. 4. Coronary disease: Presumed. As noted above no symptoms suggestive of coronary insufficiency or angina. Will continue aggressive secondary prevention with Simvastatin, metoprolol on a daily aspirin. 5. left bundle branch block: Based on his degree of LV dysfunction is left bundle branch block associated with symptoms of congestive heart failure he would be a good candidate for cardiac resynchronization therapy. He does have notable septal dyskinesis on his echocardiogram. Again, this would not be an acute intervention and can certainly be readdressed in the outpatient setting should the patient be willing to entertain any interventions ( coronary angio graphy would seem to be the most appropriate initial intervention.) 6. Syncope: The patient did describe 2 episodes of syncope leading up to admission for subdural hematoma. He did not recall much in the way of a prodrome. The episode did occur while standing. He is known to have an element of orthostasis and may in fact have some autonomic dysfunction associated with either his cerebrovascular disease or parkinsonism. The possibility of conduction disease also exist given his baseline left bundle branch block and cardiomyopathy. History of Present Illness Reason for Consultation: dyspnea Requesting Physician: Sohail Attending Physician: Agueda Skinner MD History of Present Illness the patient is an 82-year-old gentleman with a known cardiomyopathy who presented to the hospital for symptoms of progressive dyspnea. The patient was discovered incidentally to have reduced LV systolic function after complaining of shortness of breath in late 2021. since that time he has been started on medical therapy some which required discontinuation due to lower blood pressures and symptoms of orthostatic hypotension. Patient states that over the past few weeks he has become more short of breath. This did not appear to be associated with a notable weight gain although he weighs himself in frequently at home. He states that his appetite has been poor recently and in fact he may have been losing weight. He has some element of lower extremity edema which she did not feel was more severe recently. He has been unaware of any chest pain or palpitations. He did have some difficulty sleeping due to shortness of breath. He has a chronic dizziness. This has been attributed to his cerebrovascular disease and parkinsonism. He did sustain a fall over the past few months and resultant subdural hematoma requiring evaluation at a tertiary care facility. At the time of presentation the patient did have evidence of pulmonary vascular congestion. BNP was also elevated. He was administered intravenous diuretics and states that this morning his breathing is improved although not quite back to normal. Allergies Allergy/AdvReac Type Severity Reaction Status Date / Time No Known Drug Allergies Allergy Unknown Verified 12/25/22 20:17 Home Medications Medication Instructions Recorded Confirmed Type cyanocobalamin (vitamin B-12) 500 500 mcg PO DAILY #90 tabs 04/14/19 12/25/22 Rx mcg tablet aspirin 81 mg tablet 81 mg PO DAILY 04/22/20 12/25/22 History glimepiride 4 mg tablet 2 mg PO BID #90 tabs 06/30/22 12/25/22 Rx polysaccharide iron complex 150 mg 150 mg PO DAILY #100 caps 07/14/22 12/25/22 R x iron capsule (Ferrex) metoprolol succinate 100 mg 100 mg PO DAILY #90 tabs 08/21/22 12/25/22 Rx tablet,extended release 24 hr finasteride 5 mg tablet 5 mg PO QPM #90 tabs 09/23/22 12/25/22 Rx metformin 1,000 mg tablet 1,000 mg PO BID #180 tabs 09/23/22 12/25/22 Rx pantoprazole 40 mg tablet,delayed 40 mg PO QAM #90 tabs 09/23/22 12/25/22 Rx release simvastatin 10 mg tablet 10 mg PO QPM #90 tabs 09/23/22 12/25/22 Rx doxazosin 4 mg tablet 4 mg PO DAILY 10/15/22 12/25/22 History furosemide 40 mg tablet 40 mg PO QAM #30 tabs 10/15/22 12/25/22 Rx losartan 100 mg tablet 100 mg PO DAILY #90 tabs 10/15/22 12/25/22 Rx hydrocodone 5 mg-acetaminophen 325 1 tab PO .COMPLEX PRN pain #60 tabs 11/17/22 12/25/22 Rx mg tablet Patient History Medical History Adenomatous colon polyp Anemia Anticoagulant long-term use Anxiety and depression Benign prostatic hyperplasia with urinary obstruction Cardiomyopathy Carotid artery stenosis, asymptomatic Cataracts, bilateral Cerebral vascular insufficiency Chronic cerebral ischemia Chronic low back pain Congestive heart failure Diabetes Diabetic peripheral neuropathy Esophageal stricture History of TIA (transient ischemic attack) HTN (hypertension) Hyperlipidemia Iron deficiency anemia Nephrolithiasis Neurogenic claudication due to lumbar spinal stenosis TOM (obstructive sleep apnea) CPAP Parkinson's disease Paroxysmal SVT (supraventricular tachycardia) Pneumonia Renal cyst SNHL (sensorineural hearing loss) Spinal stenosis of lumbar region Subdural hematoma Vertebral artery stenosis Vertigo, central Surgical History H/O colonoscopy May 2020 H/O cystoscopy H/O knee surgery left History of esophagogastroduodenoscopy (EGD) 06/03/2018 negative History of prostate biopsy Hx of cholecystectomy Family History Mother Coronary heart disease Myocardial infarction Grandmother Stroke Father Diabetes Other Hypertension Denies family history of Ovarian cancer Prostate cancer Breast cancer Colorectal cancer Social History Smoking Status: Former smoker Tobacco Type: Cigarettes Age Started Using Tobacco: 10; Age Quit Using Tobacco: 61; Second Hand Exposure: Yes; Do You Dip or Chew Tobacco: No; Hx Alcohol Use: Yes Alcohol type: beer, wine and hard liquor Alcohol Intake Frequency: 4 or More x per/Week Alcohol Intake Frequency Comment: 1 beer daily Hx Substance Use: No Preferred Language: Vietnamese Communication Ability: Effective Communication Ability Comment: PT BAD [place] BAND Visual Impairment: Partially Limited Hearing Ability: Use of Hearing Aid Packaging Sales Required: No Beliefs That Will Affect Care: None marital status: Current Living Situation: Spouse Current Living Situation Comment: Lives in a home with current occupational status: retired How many Children do You have: 4 Other Information That Helps Us Care for You: No Feels Safe at Home: Yes Safety Concerns: Feels Safe At This Time Childhood Exposure to Second-Hand Smoke: Yes Diet: regular caffeine: Yes (coffee) during the past year weight has: remained stable Dental Care, Regularly: Yes Physical Activity Frequency: Does not Exercise Seatbelt Use: always Sunscreen Use: No Do you think of yourself as: straight/heterosexual Gender Identity: Male Assistive Devices: Glasses, Hearing Aid - Bilateral and Walker Assistive Devices Comment: Hearing aids not present; states does use d/t doesn't fit Review of Systems Review of Systems: Per HPI Physical Exam Physical Exam: The patient is alert and oriented. Mood and affect appeared normal. He answered all questions appropriately. hard of hearing HEENT: Pupils are equal and reactive to light and accommodation. Extraocular movements are intact. The sclerae are anicteric. Neuro: Cranial nerves intact Lungs: Clear to auscultation bilaterally. He has good air movement without use of accessory muscles. No rales wheezes or rhonchi. Cardiac: Heart demonstrates a regular rate and rhythm. Normal S1 and S2. No murmurs on examination. Pulses: The patient has palpable radial pulses bilaterally that are equal in intensity Extremities: There was no evidence of hypoperfusion. There is no cyanosis or clubbing. mild lower extremity edema. resting tremor Skin: I did not appreciate any rashes on examination today. Results & Data Vital Signs (Past 12 Hours) Vital Signs Temp Pulse Pulse Pulse Resp BP BP 12/26/22 11:23 36.7 C 59 L 16 162/87 H 12/26/22 08:00 12/26/22 07:44 36.4 C L 76 16 138/80 12/26/22 07:25 59 L 12/26/22 00:17 64 12/26/22 02:40 36.4 C L 74 18 174/92 H 12/26/22 00:45 12/26/22 00:15 36.4 C L 64 22 173/82 H Pulse Ox O2 Del Method 12/26/22 11:23 93 Room Air 12/26/22 08:00 Room Air 12/26/22 07:44 95 Room Air 12/26/22 07:25 12/26/22 00:17 12/26/22 02:40 90 Room Air 12/26/22 00:45 Room Air 12/26/22 00:15 100 Room Air Laboratory Results Abnormal Lab Results 12/25/22 12/25/22 12/25/22 16:30 16:30 16:30 WBC 5.65 RBC 4.36 L Hgb 10.9 L Hct 34.9 L MCV 80.0 MCH 25.0 MCHC 31.2 L RDW Std Deviation 56.3 H RDW Coeff of Matthew 19.2 H Plt Count 258 MPV 9.7 Immature Gran % (Auto) 0.4 Neut % (Auto) 76.4 Lymph % (Auto) 11.0 Webster % (Auto) 10.1 Eos % (Auto) 1.4 Baso % (Auto) 0.7 Neut # (Auto) 4.32 Lymph # (Auto) 0.62 L Webster # (Auto) 0.57 Eos # (Auto) 0.08 Baso # (Auto) 0.04 Immature Gran # (Auto) 0.02 PT INR APTT PTT Ratio Sodium 142 Potassium 4.2 Chloride 104 Carbon Dioxide 25 Anion Gap 13 H BUN 31 H Creatinine 1.30 Est Cr Clr Drug Dosing 39.5 Est GFR ( Amer) 58.9 Est GFR (Non-Af Amer) 50.8 BUN/Creatinine Ratio 23.8 H Glucose 118 H POC Glucose Calcium 9.3 Troponin I High Sens 13.2 B-Natriuretic Peptide 1358 H Lipase 8 L SARS-CoV-2, RNA, NAAT 12/25/22 12/25/22 12/26/22 16:30 17:10 07:21 WBC 5.91 RBC 4.66 L Hgb 11.6 L Hct 36.6 L MCV 78.5 L MCH 24.9 L MCHC 31.7 L RDW Std Deviation 53.7 H RDW Coeff of Matthew 18.9 H Plt Count 286 MPV 9.6 Immature Gran % (Auto) Neut % (Auto) Lymph % (Auto) Webster % (Auto) Eos % (Auto) Baso % (Auto) Neut # (Auto) Lymph # (Auto) Webster # (Auto) Eos # (Auto) Baso # (Auto) Immature Gran # (Auto) PT 12.5 H INR 1.2 H APTT 28.3 PTT Ratio 1.0 Sodium Potassium Chloride Carbon Dioxide Anion Gap BUN Creatinine Est Cr Clr Drug Dosing Est GFR ( Amer) Est GFR (Non-Af Amer) BUN/Creatinine Ratio Glucose POC Glucose Calcium Troponin I High Sens B-Natriuretic Peptide Lipase SARS-CoV-2, RNA, NAAT NEGATIVE 12/26/22 12/26/22 07:21 11:42 WBC RBC Hgb Hct MCV MCH MCHC RDW Std Deviation RDW Coeff of Matthew Plt Count MPV Immature Gran % (Auto) Neut % (Auto) Lymph % (Auto) Webster % (Auto) Eos % (Auto) Baso % (Auto) Neut # (Auto) Lymph # (Auto) Webster # (Auto) Eos # (Auto) Baso # (Auto) Immature Gran # (Auto) PT INR APTT PTT Ratio Sodium 141 Potassium 3.6 Chloride 102 Carbon Dioxide 26 Anion Gap 13 H BUN 28 H Creatinine 1.12 Est Cr Clr Drug Dosing 50.7 Est GFR ( Amer) 70.5 Est GFR (Non-Af Amer) 60.8 BUN/Creatinine Ratio 25.0 H Glucose 110 H POC Glucose 70 Calcium 9.6 Troponin I High Sens 19.5 D B-Natriuretic Peptide Lipase SARS-CoV-2, RNA, NAAT Diagnostic Findings 1. Lower extremity arterial duplex 09/10/20 [facility]: No significant stenosis bilaterally. 2. Echo 07/31/2022 [facility]: Mildly dilated LV. EF 35-40%. Severe hypokinesis to akinesis of the base to mid inferior wall. Otherwise mild global hypokinesis. Mild LVH. Mild left atrial dilation. Sclerotic aortic valve without stenosis. Mild to moderate MR. Compared to 01/02/2016 study, LV systolic function has declined. echocardiogram performed today revealed moderate to severely reduced LV systolic function with an ejection fraction around 35%. Regional wall motion abnormalities. Mild left atrial dilation. Moderate mitral regurgitation. PG Care Time/CCT Total # of Minutes Spent Total Time Spent with Patient: Total time spent is greater than 50% in coordination of care (as documented) at patient's floor/unit and/or counseling patient: Coding Level of Care Code 02275 INT INP/OBS CARE 3/75MIN Diagnoses Acute HFrEF (heart failure with reduced ejection fraction) I50.21 Cardiomyopathy I42.9 Mitral regurgitation I34.0 Coronary disease I25.10 Left bundle branch block I44.7
--- NOTE | 2022-12-26 14:31 | Pharmacy Report ---
Pharmacy Glycemic Short Note 2 - Date of Service December 26, 2022 - Glycemic Short BSG Results (Last 24 hours): 12/25/22 12/26/22 12/26/22 16:30 07:21 11:42 Glucose 118 H 110 H POC Glucose 70 OUTPATIENT ANTIDIABETIC REGIMEN: * Glimepiride 2 mg PO BID * Metformin 1 gm PO BID HbA1c = 5.6% on 11/04/22 ASSESSMENT: * 82 y/o M admitted for acute CHF exacerbation. Patient with history of well controlled Type 2 diabetes managed at home on two oral antidiabetic meds. * Holding oral anti-diabetic meds while admitted and utilize basal bolus insulin for glycemic control. * BSG this AM was 110 mg/dl. Novolog started based on stress between 1 and 2. Basal insulin not ordered. * Pre-lunch BSG trended down to 70 mg/dl after patient receiving only 4 units of bolus insulin with breakfast. * Novolog parameters loosened. Will hold off on ordering basal insulin at this time. PLAN FOR INPATIENT GLYCEMIC CONTROL: * Hold outpatient oral diabetes medications * Basal insulin * None * Bolus insulin * NovoLog per scale ACHS or Q6hrs while NPO * Goal Range: Low 120 mg/dL - High 150 mg/dL * Correction Factor: 40 mg/dL/unit * Nutritional / Prandial insulin per carb ratio of 1 unit per 15 grams CHO consumed
[2022-12-26] MEDS: FUROSEMIDE 40 MG/4 ML VIAL IV SCH (17:18)
[2022-12-26] MEDS ORDERED: ALBUTEROL HFA 8 GM INHALER INH PRN (19:18)
[2022-12-26] MEDS ORDERED: ALBUTEROL HFA 8 GM INHALER INH ONE (19:18)
--- NOTE | 2022-12-26 19:20 | History & Physical Bridge Note ---
Date of Service December 26, 2022 History & Physical Bridge Note I have examined the patient, reviewed the History & Physical and in the interval since the performance of the History & Physical I have noted the following changes of clinical significance: Has ongoing SOB, requests albuterol inhaler which has helped him in the past. Continue diuresis Pt adamant about going home tomorrow but says he is now willing to do a cardiac cath as an outpt-I will relay this to the Cardiology team Vitals reviewed NAD RRR no mgr, minimal peripheral edema, tachypneic at rest with speaking in complete sentences No wcr Neuro-resting tremor left arm/hand Continue IV lasix, check orthostatics in AM could dc Cardura given orthostasis but then might have urinary retention issues trial of albuterol inhaler plan for cardiac cath as outpt to eval for ischemic CM follow BMP check anemia labs in AM
[2022-12-26] MEDS ORDERED: SIMVASTATIN 10 MG TAB PO SCH (21:00)
[2022-12-26] MEDS ORDERED: FINASTERIDE 5 MG TAB PO SCH (21:00)
[2022-12-27 07:05] LABS: Basophils # (auto) 0.03 K/uL (0-0.2); Basophils % (auto) 0.5 %; Eosinophils % (auto) 1.7 %; Hematocrit (blood only) 33.1 % (42.0-52.0); Hemoglobin 10.3 g/dl (14.0-18.0); Immature Granulocytes # (auto) 0.02 K/uL (0.01-0.20); Immature Granulocytes % (auto) 0.3 %; Lymphocytes % (auto) 11.6 %; Mean Corpuscular Hgb Conc 31.1 g/dL (32.0-36.0); Mean Corpuscular Volume 80.3 fL (80.0-100.0); Mean Platelet Volume 9.9 fL (9.4-12.4); Monocytes # (auto) 0.68 K/uL (0.11-0.59); Monocytes % (auto) 11.2 %; Neutrophils # (auto) 4.52 K/uL (1.40-6.50); Neutrophils % (auto) 74.7 %; Platelet Count 273 K/uL (130-400); RDW Coefficient of Variation 18.6 % (11.5-14.5); RDW Standard Deviation 54.9 fL (36.4-46.3); Red Blood Count 4.12 M/uL (4.70-6.10); White Blood Count 6.05 K/ul (4.8-10.8)
[2022-12-27 07:36] LABS: BUN Creatinine Ratio 23.2 (10-20); Creatinine Clr Calc Pharmacy 41.1 ml/min; Est GFR (African American) 61.8 ml/min; Est GFR (Non-African American) 53.3 ml/min; Magnesium 1.7 mg/dl (1.7-2.4); Potassium 3.2 mmol/L (3.5-5.1)
[2022-12-27 07:55] LABS: Ferritin 19.6 ng/ml (8-388)
[2022-12-27] MEDS: HEPARIN SOD 5,000 UNIT/0.5 ML VIAL SQ SCH (08:25)
[2022-12-27] MEDS: LOSARTAN POTASSIUM 50 MG TAB PO SCH (08:26)
[2022-12-27] MEDS: IRON POLYSACCHARIDE COMPLEX 150 MG CAPSULE PO SCH (08:26)
[2022-12-27] MEDS: PANTOprazole 40 MG TAB PO SCH (08:26)
[2022-12-27] MEDS: METOPROLOL SUCC 50MG EXT REL TAB PO SCH (08:26)
[2022-12-27] MEDS: CYANOCOBALAMIN (B-12) 500 MCG TABLET PO SCH (08:27)
[2022-12-27] MEDS: DOXAZosin MESYLATE 4 MG TAB PO SCH (08:27)
[2022-12-27] MEDS: ASPIRIN 81 MG ECTAB PO SCH (08:27)
[2022-12-27] MEDS: FUROSEMIDE 40 MG/4 ML VIAL IV SCH (08:28)
[2022-12-27] MEDS: INSULIN ASPART PER UNIT CHARGE SC SCH ×2 (08:29→12:21)
[2022-12-27] MEDS ORDERED: POTASSIUM CHLORIDE CRTAB 20 MEQ TABCR PO STA (09:14)
[2022-12-27] MEDS: MAGNESIUM SULFATE / D5W 1 GM/100 ML BAG IV SCH ×2 (09:35→11:40)
--- NOTE | 2022-12-27 11:47 | Cardiology Progress Note ---
Date of Service December 27, 2022 Assessment & Plan (1) Acute HFrEF (heart failure with reduced ejection fraction): (2) Coronary disease: (3) Cardiomyopathy: (4) Mitral regurgitation: Plan ASSESSMENT/PLAN: 1. Acute on chronic heart failure with reduced EF: He still appears hypervo lemic. Recommended continued inpatient treatment but he declines. He stated that he is comfortable if he goes home and passes away. Can increase outpatient Lasix to 40 mg twice daily from typical 40 mg once daily. Close follow-up. Low-sodium diet, less than 2000 mg daily. Daily weights at home. He has not tolerated low-dose Entresto due to orthostatic hypotension and syncope. Can continue ARB and metoprolol succinate. Could consider SGLT2 inhibitor. 2. Cardiomyopathy: He has declined coronary angiography in the past but is willing to consider outpatient angiography. He stated that he will never undergo CABG if indicated. Biventricular ICD may offer benefit. He was seen by Dr. Castañeda yesterday and he was willing to address possible ICD as an outpatient but based on patient's wishes today, ICD does not appear to fit his current outlook. 3. Mitral regurgitation: Nonsevere. Can be managed as an outpatient if applicable. 4. Subdural hematoma: Has been seen by neurosurgery at [facility] and according to records, anticoagulation therapy is not to be restarted per family wishes. He remains on aspirin therapy. Anticoagulation therapy has been managed by PCP for chronic cerebral insufficiency, not cardiac issues. 5. Presumed CAD: Address risk factor modification. On aspirin. Can continue statin therapy and beta-nayeli for now. 6. Disposition: He plans on being discharged today and his was already in route per patient. Based on today's discussion, recommend outpatient palliative care evaluation, to honor his wishes. He was agreeable for this consultation. Dr. Skinner plans on communicating with nurse navigator to help set this up with [facility] palliative care in the [place] area (local for him). He also wishes to first be seen in the outpatient cardiology office before pursuing cardiac catheterization. Overall outlook and plan to further be discussed as an outpatient. Cardiology office asked to set up appointment in the [place] office within 1 week. Highly complex medical issues. Admission and Anticipated Discharge Date Admission Date: December 25, 2022 Subjective He was seen earlier today, at approximately 12:30 PM. He stated that he plans on going home and does not want to be readmitted. He prefers to receive palliative care and manage things from home. He states that even if refusing hospitalization would lead to his demise, he is prepared to pass away and does not wish to be readmitted. Yesterday, he was seen by Dr. Castañeda and cardiac catheterization had been once again discussed as it has been as an outpatient. He had declined but today was notified by Dr. Skinner that he wished to go home and pursue cardiac catheterization as an outpatient. He denies chest pain. His breathing has improved. He denies shortness of breath currently. He denies palpitations, syncope, or bleeding. He was unaccompanied and I offered to call his but he stated that she would be unavailable to talk as she was in route to come pick him up to go home. Physical Exam Physical Exam: Gen.: No acute distress. Alert. HEENT: Anicteric sclera. Neck: Hepatojugular reflux noted. No JVD. Cardiac: No ventricular heave. Regular. Normal S1-S2. No murmurs, rubs, or gallops. Pulmonary: Clear to auscultation bilaterally without wheezes, rales, or rhonchi. Abdomen: Soft, nontender, nondistended, with normoactive bowel sounds. No bruits noted. Extremities: 2+ radial pulses bilaterally. 1+ bilateral lower extremity edema. No cyanosis. Results & Data Vital Signs (Past 12 Hours) Vital Signs Temp Pulse Pulse Resp BP Pulse Ox Pulse Ox 12/27/22 07:08 76 12/27/22 03:52 36.5 C 60 20 172/78 H 91 12/27/22 00:07 93 O2 Del Method O2 Del Method 12/27/22 07:08 12/27/22 03:52 Room Air 12/27/22 00:07 Room Air Intake & Output 12/25/22 12/26/22 12/27/22 12/28/22 06:59 06:59 06:59 06:59 Intake Total 700 / 700 Output Total 426 / 426 1102 / 1102 Balance -426 / -426 -402 / -402 Weight 177 lb 4.026 oz 168 lb 3.403 oz Laboratory Results Laboratory Results - last 24 hr 12/26/22 12/26/22 12/27/22 16:49 20:37 05:50 WBC 6.05 RBC 4.12 L Hgb 10.3 L Hct 33.1 L MCV 80.3 MCH 25.0 MCHC 31.1 L RDW Std Deviation 54.9 H RDW Coeff of Matthew 18.6 H Plt Count 273 MPV 9.9 Immature Gran % (Auto) 0.3 Neut % (Auto) 74.7 Lymph % (Auto) 11.6 Mcpherson % (Auto) 11.2 Eos % (Auto) 1.7 Baso % (Auto) 0.5 Neut # (Auto) 4.52 Lymph # (Auto) 0.70 L Mcpherson # (Auto) 0.68 H Eos # (Auto) 0.10 Baso # (Auto) 0.03 Immature Gran # (Auto) 0.02 Sodium Potassium Chloride Carbon Dioxide Anion Gap BUN Creatinine Est Cr Clr Drug Dosing Est GFR ( Amer) Est GFR (Non-Af Amer) BUN/Creatinine Ratio Glucose POC Glucose 227 H 83 Calcium Magnesium Iron TIBC Unsaturated IBC Transferrin % Sat Ferritin Vitamin B12 Folate TSH 12/27/22 12/27/22 12/27/22 05:50 05:50 05:50 WBC RBC Hgb Hct MCV MCH MCHC RDW Std Deviation RDW Coeff of Matthew Plt Count MPV Immature Gran % (Auto) Neut % (Auto) Lymph % (Auto) Mcpherson % (Auto) Eos % (Auto) Baso % (Auto) Neut # (Auto) Lymph # (Auto) Mcpherson # (Auto) Eos # (Auto) Baso # (Auto) Immature Gran # (Auto) Sodium 141 Potassium 3.2 L Chloride 101 Carbon Dioxide 30 Anion Gap 10 BUN 29 H Creatinine 1.25 Est Cr Clr Drug Dosing 41.1 Est GFR ( Amer) 61.8 Est GFR (Non-Af Amer) 53.3 BUN/Creatinine Ratio 23.2 H Glucose 135 H POC Glucose Calcium 9.0 Magnesium 1.7 Iron 29 L TIBC 338 Unsaturated IBC 309 Transferrin % Sat 9 L Ferritin 19.6 Vitamin B12 1152 H Folate 7.87 TSH 1.240 12/27/22 08:05 WBC RBC Hgb Hct MCV MCH MCHC RDW Std Deviation RDW Coeff of Matthew Plt Count MPV Immature Gran % (Auto) Neut % (Auto) Lymph % (Auto) Mcpherson % (Auto) Eos % (Auto) Baso % (Auto) Neut # (Auto) Lymph # (Auto) Mcpherson # (Auto) Eos # (Auto) Baso # (Auto) Immature Gran # (Auto) Sodium Potassium Chloride Carbon Dioxide Anion Gap BUN Creatinine Est Cr Clr Drug Dosing Est GFR ( Amer) Est GFR (Non-Af Amer) BUN/Creatinine Ratio Glucose POC Glucose 130 H Calcium Magnesium Iron TIBC Unsaturated IBC Transferrin % Sat Ferritin Vitamin B12 Folate TSH Diagnostic Findings Telemetry personally reviewed: Sinus rhythm. No arrhythmia noted. ECG from 01-15 at 1650 demonstrated sinus rhythm with first-degree AV block. LBBB. Echo 12/26/2022: EF 30 to 35%. Septal dyskinesis. Apical inferior akinesis and otherwise global hypokinesis reported. Mild LVH. Mild left atrial dilation. Moderate MR. Normal RVSP. Labs from 12/27/2022 reviewed and notable for anemia, stable renal function, hypokalemia. Medications Administered Current Inpatient Medications Acetaminophen (Acetaminophen 325 Mg Tab) 650 mg PO Q4H PRN PRN Reason: Pain or Fever Stop: 01/25/23 00:44 Hydrocodone Bitart/Acetaminophen (Hydrocodone/Acetamophen 5/325mg Tab) 0.5 - 1 tab PO BID PRN PRN Reason: pain Stop: 01/09/23 00:44 Al Hydrox/Mg Hydrox/Simethicone (Aluminum/Magnesium Susp 30 Ml Udc) 15 ml PO Q4H PRN PRN Reason: Dyspepsia Stop: 01/25/23 00:44 Albuterol (Albuterol Hfa 8 Gm Inhaler) 2 puffs INH Q6H PRN PRN Reason: shortness of breath Stop: 01/25/23 19:29 Aspirin (Aspirin 81 Mg Ectab) 81 mg PO QAM RACHELE Stop: 01/25/23 08:59 Last Admin: 12/27/22 08:27 Dose: 81 mg Cyanocobalamin (Cyanocobalamin (B-12) 500 Mcg Tablet) 500 mcg PO DAILY RACHELE Stop: 01/25/23 08:59 Last Admin: 12/27/22 08:27 Dose: 500 mcg Dextrose (Dextrose 50% 50 Ml Syringe) 25 - 50 ml IV UD PRN; Protocol PRN Reason: Hypoglycemia Protocol Stop: 01/25/23 07:26 Doxazosin Mesylate (Doxazosin Mesylate 4 Mg Tab) 4 mg PO DAILY RACHELE Stop: 01/25/23 08:59 Last Admin: 12/27/22 08:27 Dose: 4 mg Finasteride (Finasteride 5 Mg Tab) 5 mg PO QPM RACHELE Stop: 01/25/23 20:59 Last Admin: 12/26/22 21:17 Dose: 5 mg Furosemide (Furosemide 40 Mg/4 Ml Vial) 40 mg IV [id number] RACHELE Stop: 01/25/23 16:59 Last Admin: 12/27/22 08:28 Dose: 40 mg Glucagon (Glucagon For Inj 1 Mg Vial) 1 mg SQ UD PRN; Protocol PRN Reason: Hypoglycemia Protocol Stop: 01/25/23 07:26 Glucose (Glucose 10 Tab/Tube) 4 - 8 tab PO UD PRN; Protocol PRN Reason: Hypoglycemia Treatment Stop: 01/25/23 07:26 Glucose (Glucose 40% Gel 15 Gm Tube) 15 - 30 gm PO UD PRN; Protocol PRN Reason: Hypoglycemia Protocol Stop: 01/25/23 07:26 Heparin Sodium (Porcine) (Heparin Sod 5,000 Unit/0.5 Ml Vial) 5,000 units SQ Q12 RACHELE Stop: 01/25/23 08:59 Last Admin: 12/27/22 08:25 Dose: 5,000 units Magnesium Sulfate/Dextrose (Magnesium Sulfate / D5w) 1 gm in 100 mls @ 50 mls/hr IV Q2H RACHELE Stop: 12/27/22 13:29 Last Admin: 12/27/22 09:35 Dose: 50 mls/hr Insulin Aspart (Insulin Aspart Per Unit Charge) 0 units SC ACHS RACHELE Stop: 01/25/23 08:29 Last Admin: 12/27/22 08:29 Dose: 3 units Losartan Potassium (Losartan Potassium 50 Mg Tab) 100 mg PO DAILY RACHELE Stop: 01/25/23 08:59 Last Admin: 12/27/22 08:26 Dose: 100 mg Metoprolol Succinate (Metoprolol Succ 50mg Ext Rel Tab) 100 mg PO DAILY RACHELE Stop: 01/25/23 08:59 Last Admin: 12/27/22 08:26 Dose: 100 mg Miscellaneous (Carbohydrates For Hypoglycemia ) 15 - 30 gm PO UD PRN PRN Reason: Hypoglycemia Protocol Stop: 01/25/23 07:26 Miscellaneous Information (Pharmacy Glycemic Mgmt Consult) 1 each N/A UD PRN PRN Reason: Consult Stop: 01/25/23 07:26 Pantoprazole Sodium (Pantoprazole 40 Mg Tab) 40 mg PO QAM [facility] Stop: 01/25/23 08:59 Last Admin: 12/27/22 08:26 Dose: 40 mg Polysaccharide Iron Complex (Iron Polysaccharide Complex 150 Mg Capsule) 150 mg PO DAILY RACHELE Stop: 01/25/23 08:59 Last Admin: 12/27/22 08:26 Dose: 150 mg Simvastatin (Simvastatin 10 Mg Tab) 10 mg PO QPM RACHELE Stop: 01/25/23 20:59 Last Admin: 12/26/22 21:17 Dose: 10 mg PG Care Time/CCT Total # of Minutes Spent Total Time Spent with Patient: Total time spent is greater than 50% in coordination of care (as documented) at patient's floor/unit and/or counseling patient: Coding Level of Care Code 79832 SUB INP/OBS CARE 3/50MIN Diagnoses Acute HFrEF (heart failure with reduced ejection fraction) I50.21 Coronary disease I25.10 Cardiomyopathy I42.9 Mitral regurgitation I34.0
--- NOTE | 2022-12-27 13:46 | Discharge Summary ---
Discharge Summary Date of Service December 27, 2022 Notes For Next Care Provider Medication Changes From Visit Increased lasix to 40 mg po bid Admission HPI Per Admitting Provider This is 82-year-old male with past medical history significant for history of type II diabetes mellitus, hyperlipidemia, hypertension, CHF who presents to the emergency department with complaints of worsening shortness of breath. Patient reports he started experiencing shortness of breath about 2 weeks ago and has been progressively worsening over the past few days. Patient reports that he feels that his shortness of breath worsens when he lays flat and improves when he assumes an upright posture. Patient also reports increasing shortness of breath when he exerts himself and reports some dry cough symptoms without significant expectoration. Patient has been admitted about 3 months ago has been diagnosed with congestive heart failure when he was admitted with a pneumonia at that time. Patient denies chest pain or nausea vomiting. Patient admits to orthopnea and is on any oral diuretics at home. Upon evaluation in the ED patient found to have elevated proBNP level of 1358 and is high sensitive troponin was 13.2 and radiologic exam shows pulmonary vascular congestion consistent with CHF and hence patient is being admitted for further management. Principal Dx & Hospital Course #1 = Principal Diagnosis (1) Acute HFrEF (heart failure with reduced ejection fraction): Patient has a known history of CHF diagnosed few months ago and based on cardiology evaluation in November 15 patient noted to have congestive heart failure with reduced EF and patient was placed on oral Lasix. Patient was attempted to be started on Entresto but was unable to tolerate secondary to orthostatic hypotension and patient was continued on losartan and conjunction with metoprolol at that time and it was noted that patient's me dications for CHF have been limited by orthostatic symptoms/dizziness but he thinks this is related to his vertebral artery stenosis Presents with symptoms of orthopnea and exertional dyspnea. proBNP elevated at 1358 and high sensitive troponin not elevated Chest x-ray shows evidence of pulmonary vascular congestion and interstitial edema consistent with CHF Started patient on IV diuretics to promote diuresis-lasix 40mg IV bid and had improvement Still with hypervolemia on day of discharge but symptomatically felt improved and adamant about being discharged ECHO with EF 30-35%, +WMAs, moderate MR Cardiology input as during recent office notes it was noted that patient might need cardiac cath and possible biventricular AICD placement to optimize cardiac function Pt now agreeable to cardiac cath but only as outpatient-to be arranged by Cardiology Stable for dc to home, continue low Na+ diet, fluid restriction, daily weights increase lasix to 40mg po bid continue Toprol XL, losartan Pt interested in enrolling in hospice/seeing Palliative Med as outpt as he does not desire to return to the hospital-referral to be placed by nurse navigator after discharge to [facility] near his home in [place] Discussed care with Cardiology (2) HTN (hypertension): Continue home dose of losartan 100 mg daily in addition to metoprolol Monitor blood pressure trend and titrate meds as tolerated (3) Vertebral artery stenosis: Patient has history of vertebral artery stenosis and was on warfarin therapy that was discontinued after patient had an episode of subdural hematoma few months ago. Patient is presently asymptomatic (4) Diabetes: continue home meds (5) BPH NOS w ur obs/LUTS: Continue home dose of Cardura 4 mg daily and finasteride 5 mg daily if has future orthostasis, consider discontinuing Cardura orthostatics here negative on day of discharge (6) Hyperlipidemia: Continue statin therapy with simvastatin 10 mg daily (7) Parkinson's disease: not sure if actually diagnosed, does have resting tremor and some ambulatory difficulties f/u with PCP Plan Dipo-dc to home Discharge Exam Constitutional WD/WN, vitals as above Respiratory normal respiratory effort, lungs clear to auscultation Cardiovascular Rate/Rhythm: regular rate and regular rhythm Heart Sounds: normal S1 and normal S2; no murmur Extremities: no edema Neurologic resting tremor left arm Psychiatric Orientation: alert and oriented x 3 Updated Medication List Medication Instructions Recorded Confirmed Type cyanocobalamin (vitamin B-12) 500 500 mcg PO DAILY #90 tabs 04/14/19 12/25/22 Rx mcg tablet aspirin 81 mg tablet 81 mg PO DAILY 04/22/20 12/25/22 History glimepiride 4 mg tablet 2 mg PO BID #90 tabs 06/30/22 12/25/22 Rx polysaccharide iron complex 150 mg 150 mg PO DAILY #100 caps 07/14/22 12/25/22 Rx iron capsule (Ferrex) metoprolol succinate 100 mg 100 mg PO DAILY #90 tabs 08/21/22 12/25/22 Rx tablet,extended release 24 hr finasteride 5 mg tablet 5 mg PO QPM #90 tabs 09/23/22 12/25/22 Rx metformin 1,000 mg tablet 1,000 mg PO BID #180 tabs 09/23/22 12/25/22 Rx pantoprazole 40 mg tablet,delayed 40 mg PO QAM #90 tabs 09/23/22 12/25/22 Rx release simvastatin 10 mg tablet 10 mg PO QPM #90 tabs 09/23/22 12/25/22 Rx doxazosin 4 mg tablet 4 mg PO DAILY 10/15/22 12/25/22 History losartan 100 mg tablet 100 mg PO DAILY #90 tabs 10/15/22 12/25/22 Rx hydrocodone 5 mg-acetaminophen 325 1 tab PO .COMPLEX PRN pain #60 tabs 11/17/22 12/25/22 Rx mg tablet albuterol sulfate 90 mcg/actuation 2 puff inhalation Q6H PRN 12/27/22 Rx aerosol inhaler (Ventolin HFA) shortness of breath or wheezing #8.5 grams furosemide 40 mg tablet 40 mg PO BID #60 tabs 12/27/22 Rx Hospital Stay Data Consultations 12/25/22 18:49 ED Decision to Admit Stat 12/26/22 06:42 Consult Cardiology Routine 12/27/22 13:26 Consult [facility] security services specialist Routine Procedures Performed ECHO Pending Results Patient Have Any Pending Studies at Discharge: No Discharge Instructions Given to Patient (Per Discharging Provider) Your lasix dose was increased to 40mg twice a day. You have agreed to have a cardiac catheterization to see if there are any blockages in your heart that can be opened up to improve your heart failure. Please follow up with the inker and opaquer to get this arranged. Call your Primary Care doctor if any of the following symptoms or problems start or get worse: * Shortness of breath or difficulty breathing * Wake up at night short of breath * Chest pain * Cough * Swelling of your hands, feet, or legs * More fatigued or tired with your normal activity * Palpitations - sudden fast heart beats WEIGHT * Weigh yourself every morning after using the bathroom. * Use the same scale. * Wear the same amount of clothing. * Write your weight down on a chart. * Call your Primary Care doctor if you gain more than 2-3 pounds in 1-2 days. MEDICATIONS * Use this discharge instruction sheet for medication instructions. * Take your medications at the time your doctor ordered. * Do not skip a dose of your medicines. * If you miss a dose of medicine, take it as soon as possible, but DO NOT DOUBLE A DOSE. * Read your medicine information when you get home. * Know all of the side effects of your medicine. If in doubt, ask your pharmacist * Call your Primary Care doctor's office if you have any side effects. * Be sure all of your doctors know what medicine and herbs you take (including cold, flu, and herbal medicine). Take the following with you to your follow-up doctor appointments: * Weight Chart * Medication List * List of questions Do not drink excessive alcohol, beer or wine. Total Time Total Time Spent Total Time Spent (In Minutes): 35 min Total Time Includes: Examination of the Patient, Discharge Planning, Medication Reconciliation and Communication With Other Providers (Cardiology) Coding Level of Care Code 05388 INP/OBS DISCH >30 MIN Diagnoses Acute HFrEF (heart failure with reduced ejection fraction) I50.21 HTN (hypertension) I10 Vertebral artery stenosis I65.09 Diabetes E11.9 BPH NOS w ur obs/LUTS N40.1 Hyperlipidemia E78.5 Parkinson's disease G20
== END 2022-12-27 15:29 | disposition home or self-care (01) | DRG 291 ==
LOC: ED 15:46 → SUATTDRO 22:27 → 2N 22:27